=== PATIENT | female | born 1990 | race Caucasian/White ===

== ENCOUNTER 2019-06-27 10:48 | Inpatient (IN) | payer BC ==
[2019-06-27] MEDS ORDERED: NACL 0.9% 3 ML SYG IV (12:00)
[2019-06-27] MEDS ORDERED: ACETAMINOPHEN 325 MG TAB PO (12:00)
[2019-06-27] MEDS ORDERED: HYDROCODONE/APAP (5/325) TAB PO (12:00)
[2019-06-27 12:36] LABS: ADD MAN DIFF? NO
[2019-06-27 12:38] LABS: WHITE BLOOD COUNT 7.8 10^3/ul (4.8-10.8)
[2019-06-27 12:38] LABS: BASOPHILS % 0.5 % (0.0-2.0); EOSINOPHILS # 0.1 10^3/ul (0.0-0.5); EOSINOPHILS % 0.9 % (0.0-7.0); HEMATOCRIT 35.9 % (37.0-47.0); HEMOGLOBIN 11.9 g/dl (12.0-16.0); LYMPHOCYTES # 1.7 10^3/ul (0.8-2.9); LYMPHOCYTES % 21.3 % (15.0-51.0); MEAN CORPUSCULAR HEMOGLOBIN 29.2 pg (29.0-33.0); MEAN CORPUSCULAR HGB CONC 33.1 g/dl (32.0-37.0); MEAN CORPUSCULAR VOLUME 88.2 fl (82.0-101.0); MEAN PLATELET VOLUME 9.7 fl (7.4-10.4); MONOCYTE # 0.8 10^3/ul (0.3-0.9); MONOCYTES % 10.5 % (0.0-11.0); NEUTROPHIL # 5.2 10^3/ul (1.6-7.5); NEUTROPHILS % 66.4 % (39.0-77.0); PLATELET COUNT 287 10^3/UL (140-415); RED BLOOD COUNT 4.07 10^6/ul (4.20-5.40); RED CELL DISTRIBUTION WIDTH 12.6 % (11.5-14.5)
[2019-06-27] MEDS: PIPER-TAZO 3.375 GM IV (PMX) 100 ML IVPB ×3 (12:48→23:54)
[2019-06-27] MEDS: NS + KCL 20 MEQ 1,000 ML IV ×2 (12:48→21:31)
[2019-06-27 12:56] LABS: ALANINE AMINOTRANSFERASE 242 IU/L (13-69); ALBUMIN 3.2 g/dl (3.3-4.9); ALBUMIN/GLOBULIN RATIO 0.96; ALKALINE PHOSPHATASE 113 IU/L (42-121); ANION GAP 4 (5-13); ASPARTATE AMINO TRANSFERASE 404 IU/L (15-46); BILIRUBIN,INDIRECT 0.3 mg/dl (0-1.1); BILIRUBIN,TOTAL 0.3 mg/dl (0.2-1.3); BLOOD UREA NITROGEN 5 mg/dl (7-20); CALCIUM 8.5 mg/dl (8.4-10.2); CARBON DIOXIDE 26 mmol/L (21-31); CHLORIDE 109 mmol/L (97-110); CREATININE 0.53 mg/dl (0.44-1.00); Estimated GFR > 60 mL/min (>60); GLUCOSE 104 mg/dl (70-220); MAGNESIUM 1.8 mg/dl (1.7-2.5); PHOSPHORUS 3.3 mg/dl (2.5-4.9); POTASSIUM 4.1 mmol/L (3.5-5.1); SODIUM 139 mmol/L (135-144); TOTAL PROTEIN 6.5 g/dl (6.1-8.1)
[2019-06-27 12:59] LABS: INR 0.93; PROTIME 12.6 Sec (11.9-14.9)
[2019-06-27 13:00] LABS: PARTIAL THROMBOPLASTIN TIME 28.5 Sec (23.0-35.0)
[2019-06-27 14:04] LABS: HEMOGLOBIN A1C 4.7 % (0-5.9)
[2019-06-27] MEDS: morphine 2 MG INJ IV (14:42)
[2019-06-27 18:15] LABS: AMPHETAMINE/METHAMPHETAMINE Negative (NEGATIVE); BARBITURATES Negative (NEGATIVE); BENZODIAZEPINES Negative (NEGATIVE); CANNABINOIDS Positive (NEGATIVE); COCAINE Negative (NEGATIVE)
[2019-06-27 18:16] LABS: OPIATES Positive (NEGATIVE)
[2019-06-27] MEDS: ONDANSETRON 4 MG INJ IV (20:14)
[2019-06-27] MEDS: HYDROmorphONE 1 MG/ML SYG IV (22:29)
[2019-06-28] MEDS: NS + KCL 20 MEQ 1,000 ML IV ×3 (00:33→10:57)
[2019-06-28] MEDS: HYDROmorphONE 1 MG/ML SYG IV ×3 (04:00→22:47)
[2019-06-28] MEDS: PIPER-TAZO 3.375 GM IV (PMX) 100 ML IVPB ×4 (05:53→21:07)
[2019-06-28 08:26] LABS: ADD MAN DIFF? NO
[2019-06-28 08:30] LABS: BASOPHIL # 0.1 10^3/ul (0.0-0.1); EOSINOPHILS # 0.3 10^3/ul (0.0-0.5); EOSINOPHILS % 4.1 % (0.0-7.0); HEMOGLOBIN 11.1 g/dl (12.0-16.0); LYMPHOCYTES # 2.9 10^3/ul (0.8-2.9); MEAN CORPUSCULAR HEMOGLOBIN 29.4 pg (29.0-33.0); MEAN CORPUSCULAR HGB CONC 32.6 g/dl (32.0-37.0); MEAN CORPUSCULAR VOLUME 89.9 fl (82.0-101.0); MEAN PLATELET VOLUME 10.1 fl (7.4-10.4); MONOCYTE # 0.5 10^3/ul (0.3-0.9); MONOCYTES % 8.4 % (0.0-11.0); NEUTROPHIL # 2.4 10^3/ul (1.6-7.5); NEUTROPHILS % 39.3 % (39.0-77.0); PLATELET COUNT 245 10^3/UL (140-415); RED BLOOD COUNT 3.78 10^6/ul (4.20-5.40); RED CELL DISTRIBUTION WIDTH 12.8 % (11.5-14.5)
[2019-06-28 08:30] LABS: WHITE BLOOD COUNT 6.1 10^3/ul (4.8-10.8)
[2019-06-28 09:26] LABS: AMYLASE 44 U/L (11-123)
[2019-06-28 09:26] LABS: LIPASE 21 U/L (23-300)
[2019-06-28 09:57] LABS: ALANINE AMINOTRANSFERASE 236 IU/L (13-69); ALBUMIN 3.2 g/dl (3.3-4.9); ALBUMIN/GLOBULIN RATIO 1.06; ALKALINE PHOSPHATASE 94 IU/L (42-121); ANION GAP 5 (5-13); ASPARTATE AMINO TRANSFERASE 158 IU/L (15-46); BILIRUBIN,INDIRECT 0.7 mg/dl (0-1.1); BILIRUBIN,TOTAL 0.7 mg/dl (0.2-1.3); BLOOD UREA NITROGEN 5 mg/dl (7-20); CALCIUM 8.1 mg/dl (8.4-10.2); CARBON DIOXIDE 25 mmol/L (21-31); CHLORIDE 111 mmol/L (97-110); CREATININE 0.57 mg/dl (0.44-1.00); Estimated GFR > 60 mL/min (>60); GLUCOSE 88 mg/dl (70-220); POTASSIUM 4.1 mmol/L (3.5-5.1); SODIUM 141 mmol/L (135-144); TOTAL PROTEIN 6.2 g/dl (6.1-8.1)
[2019-06-28 10:01] LABS: CHOL/HDL RATIO 2.1 RATIO; CHOLESTEROL 127 mg/dl (100-200); HDL CHOLESTEROL 59 mg/dl (34-82); LDL CHOLESTEROL,CALCULATED 54 mg/dl; MAGNESIUM 1.7 mg/dl (1.7-2.5); TRIGLYCERIDES 71 mg/dl (0-149)
[2019-06-28] MEDS: ONDANSETRON 4 MG INJ IV (11:46)
[2019-06-28 14:33] LABS: HEPATITIS B SURFACE ANTIGEN NEGATIVE (NEGATIVE)
[2019-06-28 14:50] LABS: HEPATITIS B CORE ANTIBODY NEGATIVE (NEGATIVE); HEPATITIS C VIRAL ANTIBODY NEGATIVE (NEGATIVE)
[2019-06-28 14:51] LABS: HEPATITIS B SURFACE ANTIBODY INDETERMINATE (NEGATIVE)
[2019-06-28] MEDS ORDERED: LIDOCAINE 1% (MPF) 30 ML INJ (16:29)
[2019-06-28] MEDS ORDERED: BUPIVACAINE 0.5%/EPI (SDV) 30 ML INJ (16:29)
[2019-06-28] MEDS ORDERED: FENTAnyl 50 MCG/ML VIAL ×2 (17:55→19:11)
[2019-06-28] MEDS ORDERED: MIDAZOLAM 1 MG/ML 2 ML INJ (17:55)
[2019-06-28] MEDS ORDERED: SUCCINYLCHOLINE CHLORIDE 100 MG/5 ML SYG IV (17:57)
[2019-06-28] MEDS ORDERED: LIDOCAINE 2% (SDV) 5 ML INJ (17:57)
[2019-06-28] MEDS ORDERED: ROCURONIUM 50 MG INJ ×2 (17:57→18:01)
[2019-06-28] MEDS ORDERED: PROPOFOL 20 ML (17:57)
[2019-06-28] MEDS ORDERED: SEVOFLURANE 15 MIN (18:00)
[2019-06-28] MEDS ORDERED: ROPIVACAINE 0.5 % 30 ML VIAL (18:02)
[2019-06-28] MEDS ORDERED: CEFAZOLIN 1 GM INJ (18:14)
[2019-06-28] MEDS ORDERED: FAMOTIDINE 20 MG INJ (18:21)
[2019-06-28] MEDS ORDERED: ONDANSETRON 4 MG INJ (18:21)
[2019-06-28] MEDS ORDERED: DEXAMETHASONE 4 MG/ML 5 ML INJ (18:21)
[2019-06-28] MEDS ORDERED: ONDANSETRON 4 MG INJ IV (18:30)
[2019-06-28] MEDS ORDERED: HYDROmorphONE 1 MG/5 ML IV SYRINGE IV ×3 (18:30)
[2019-06-28] MEDS ORDERED: PROCHLORPERAZINE 10 MG INJ IV (18:30)
[2019-06-28] MEDS ORDERED: MEPERIDINE 25 MG INJ IV (18:30)
[2019-06-28] MEDS ORDERED: DIPHENHYDRAMINE 50 MG INJ IV (18:30)
[2019-06-28] MEDS ORDERED: GLYCOPYRROLATE 0.4 MG INJ (18:50)
[2019-06-28] MEDS ORDERED: NEOSTIGMINE 3 MG/3 ML SYRINGE ×2 (18:50→19:02)
[2019-06-28] MEDS ORDERED: HYDROmorphONE 2 MG/ML SYG (18:59)
[2019-06-28] MEDS ORDERED: METOCLOPRAMIDE 10 MG INJ IV (19:30)
[2019-06-28] MEDS ORDERED: morphine 2 MG INJ IV (19:30)
[2019-06-28] MEDS ORDERED: DIPHENHYDRAMINE 25 MG CAP PO (19:30)
[2019-06-28] MEDS ORDERED: ACETAMINOPHEN 325 MG TAB PO (19:30)
[2019-06-28] MEDS ORDERED: IBUPROFEN 600 MG TAB PO (19:30)
[2019-06-28] MEDS: FENTAnyl 50 MCG/ML VIAL IV (19:31)
[2019-06-28] MEDS: KETOROLAC 30 MG INJ IV (19:44)
[2019-06-28] MEDS: D5-NS + KCL 20 MEQ 1,000 ML IV (21:06)
[2019-06-28] MEDS: DIPHENHYDRAMINE 50 MG INJ IV (22:53)
[2019-06-29] MEDS: PIPER-TAZO 3.375 GM IV (PMX) 100 ML IVPB ×3 (01:00→13:12)
[2019-06-29] MEDS: HYDROmorphONE 1 MG/ML SYG IV ×3 (03:20→14:02)
[2019-06-29] MEDS: D5-NS + KCL 20 MEQ 1,000 ML IV (05:01)
[2019-06-29 06:26] LABS: ADD MAN DIFF? NO
[2019-06-29 06:32] LABS: WHITE BLOOD COUNT 9.8 10^3/ul (4.8-10.8)
[2019-06-29 06:32] LABS: BASOPHILS % 0.2 % (0.0-2.0); HEMATOCRIT 36.5 % (37.0-47.0); HEMOGLOBIN 12.2 g/dl (12.0-16.0); MEAN CORPUSCULAR HEMOGLOBIN 29.3 pg (29.0-33.0); MEAN CORPUSCULAR HGB CONC 33.4 g/dl (32.0-37.0); MEAN CORPUSCULAR VOLUME 87.5 fl (82.0-101.0); MEAN PLATELET VOLUME 10.2 fl (7.4-10.4); MONOCYTE # 0.4 10^3/ul (0.3-0.9); MONOCYTES % 4.3 % (0.0-11.0); NEUTROPHIL # 8.4 10^3/ul (1.6-7.5); PLATELET COUNT 281 10^3/UL (140-415); RED BLOOD COUNT 4.17 10^6/ul (4.20-5.40); RED CELL DISTRIBUTION WIDTH 12.3 % (11.5-14.5)
[2019-06-29 06:54] LABS: ALANINE AMINOTRANSFERASE 168 IU/L (13-69); ALBUMIN 3.4 g/dl (3.3-4.9); ALBUMIN/GLOBULIN RATIO 1.03; ALKALINE PHOSPHATASE 95 IU/L (42-121); ANION GAP 9 (5-13); ASPARTATE AMINO TRANSFERASE 68 IU/L (15-46); BILIRUBIN,INDIRECT 0.5 mg/dl (0-1.1); BILIRUBIN,TOTAL 0.5 mg/dl (0.2-1.3); BLOOD UREA NITROGEN 4 mg/dl (7-20); CALCIUM 8.8 mg/dl (8.4-10.2); CARBON DIOXIDE 23 mmol/L (21-31); CHLORIDE 107 mmol/L (97-110); CREATININE 0.52 mg/dl (0.44-1.00); Estimated GFR > 60 mL/min (>60); GLUCOSE 146 mg/dl (70-220); POTASSIUM 4.1 mmol/L (3.5-5.1); SODIUM 139 mmol/L (135-144); TOTAL PROTEIN 6.7 g/dl (6.1-8.1)
[2019-06-29 06:56] LABS: PHOSPHORUS 3.3 mg/dl (2.5-4.9)
[2019-06-29 06:56] LABS: MAGNESIUM 1.5 mg/dl (1.7-2.5)
[2019-06-29] MEDS: MAGNESIUM SULFATE 2 GM/50 ML 50 ML IVPB (11:04)
[2019-06-29] MEDS: ONDANSETRON 4 MG INJ IV (14:02)
== END 2019-06-29 15:48 | disposition home or self-care (01) | DRG 419 ==
LOC: PP2 10:48
PROVIDERS: Internal Medicine
PROC: 0FT44ZZ Resection of Gallbladder, Percutaneous Endoscopic Approach (ICD-10-PCS; principal; 2019-06-28 17:00)
PROC: BF13YZZ Fluoroscopy of Gallbladder and Bile Ducts using Other Contrast (ICD-10-PCS; 2019-06-28 17:00)
DX: K80.00 Calculus of gallbladder with acute cholecystitis without obstruction (principal); K76.0 Fatty (change of) liver, not elsewhere classified; K83.8 Other specified diseases of biliary tract; F12.10 Cannabis abuse, uncomplicated
CPT/HCPCS: 74181; 80053; 80061; 80307; 82150; 83036; 83690; 83735; 84100; 84703; 85025; 85610; 85730; 86704; 86706; 86708; 86709; 86803; 87081; 87340; 88304